=== PATIENT | female | born 1975 | race Caucasian/White ===

== ENCOUNTER 2016-08-24 21:11 | Emergency (ER) | payer SELFPAY ==
--- NOTE | 2016-09-01 07:39 | ER ---
ADMIT: 08/24/2016 RM/LOC: ER [facility] MR#: [id number] [address] [id number] CÉSAR BABCOCK [address] [place] [id number] Emergency Room Report SEX: F AGE: 41 : 1975 DATE: 08/24/2016 ADDENDUM: This patient comes into the ER because she is having chest pain that is going into her shoulder. It started today, and it keeps coming and going, which is making her really anxious. She states she read a brochure of signs and symptoms of chest pain. It made her even more scared, so she comes into the ER. She denies any shortness of breath. When she comes into the ER, she no longer has pain and most of it has subsided, but she is quite anxious. Chest x-ray and EKG were normal. I gave her Xanax, which did help with her anxiety. While she was here, she no longer had the chest or the shoulder pain. I did reassure her that the EKG and chest x-ray was fine. We will have her follow up with her doctor if she continues to have pain. Please see my T- sheet. ALLYN Jorge / Ivan James MD / tal JOB #: [id number] CC: Ivan James MD, Attending Physician Francisco Patiño MD, Family Physician
== END 2016-08-24 22:30 | disposition home or self-care (01) ==
LOC: ER 21:11
DX: R07.9 Chest pain, unspecified (principal); M25.512 Pain in left shoulder; F32.9 Major depressive disorder, single episode, unspecified; F17.210 Nicotine dependence, cigarettes, uncomplicated